=== PATIENT | female | born 1975 | race Caucasian/White ===

== ENCOUNTER 2019-04-16 16:31 | Outpatient (REF) | payer OTHER, SELFPAY ==
[2019-04-17 15:00] LABS: TSH (W/Ref FT4) 5.29 uIU/mL (0.36-3.74)
[2019-04-17 15:18] LABS: FREE T4 1.02 ng/dL (0.76-1.46)
== END 2019-04-16 16:51 ==
LOC: NCHCN 16:31
PROVIDERS: PCP Nurse Practitioner Family; Visit Provider Family Medicine
DX: Z13.29 Encounter for screening for other suspected endocrine disorder (principal)
CPT/HCPCS: 84439; 84443

== ENCOUNTER 2020-06-11 01:08 | Outpatient (CLI) | payer OTHER, SELFPAY ==
[2020-06-11] MEDS: Omnipaque 350 MG/ML 50 ML BTL PO (07:07)
[2020-06-11] MEDS: Breeza Beverage 473 ML BTL PO ×2 (07:08→07:09)
[2020-06-11 08:36] LABS: Abs Immature Grans 0.03 10^3/uL (0.0-0.06); Absolute Basophil Count 0.05 10^3/uL (0.0-0.2); Absolute Eosinophil Count 0.19 10^3/uL (0.0-0.7); Absolute Lymphocyte Count 1.45 10^3/uL (1.2-3.4); Absolute Monocyte Count 0.45 10^3/uL (0.1-0.8); Absolute Neutrophil Count 3.59 10^3/uL (1.2-6.7); Basophils % 0.9; Eosinophils % 3.3; HCT 42.2 % (36.0-46.0); Immature Grans % 0.5; Lymphocytes % 25.2; MCH 31.5 pg (27.0-33.0); MCHC 33.2 % (32.0-36.0); Monocytes % 7.8; Neutrophils % 62.3; Nucleated RBC 0 %; RBC 4.44 10^6/uL (3.93-5.22); RDW 11.4 % (11.7-14.6); RDW-SD 39.8 fL; WBC 5.76 10^3/uL (4.4-10.8)
[2020-06-11 08:43] LABS: ALT 32 U/L (14-59); AST 18 U/L (15-37); Alkaline Phosphatase 65 U/L (46-116); Anion Gap 5.5 mmol/L (3-11); BUN 12 mg/dL (7-18); Bilirubin, Total 0.4 mg/dL (0.2-1.0); CO2 27.5 mmol/L (21.0-32.0); Calcium 8.8 mg/dL (8.5-10.1); Chloride 104 mmol/L (98-107); Glucose 108 mg/dL (74-106); Potassium 4.7 mmol/L (3.5-5.1); Sodium 137 mmol/L (136-145); TSH (W/Ref FT4) 3.37 uIU/mL (0.36-3.74); Total Protein 7.4 g/dL (6.4-8.2)
[2020-06-11 08:49] LABS: C-Reactive Protein < 0.05 mg/dL (0.0-0.3)
[2020-06-11] MEDS: Normal Saline - Diluent 50 ML VIAL IV (08:51)
[2020-06-11] MEDS: Omnipaque 350 MG/ML 100 ML BTL IJ (08:51)
--- NOTE | 2020-06-11 08:52 | DI.CT_ITS ---
EXAM: CT ABDOMEN PELVIS W INDICATION: pain to the right of umbilicus and assoc diarrhea,ABD PAIN. COMPARISON: No exams were available for comparison TECHNIQUE: FINDINGS: CT examination of the abdomen and pelvis was performed with a bolus infusion of 100 cc of Omnipaque 3 50. Images obtained through the lung bases are unremarkable. The liver is unremarkable in appearance. Gallbladder and bile ducts are CT normal. Pancreas appears normal. Spleen is unremarkable in appearance. Adrenals appear normal. The kidneys are unremarkable with no evidence of hydronephrosis, nephrolithiasis, or renal mass.. Ur inary bladder unremarkable. Abdominal aorta is of normal diameter and no major vascular abnormality is seen. No abdominal wall hernia. No abdominal or pelvic adenopathy. LANDSCAPE ARCHITECT AND PLANNER structures appear intact. Appendix is normal. No evidence of diverticulitis or bowel obstruction. IMPRESSION: Negative CT examination of the abdomen and pelvis. RADIATION DOSE DELIVERED: 1,026.67mGy.cm Total DLP 1,026.67mGy.cm Total DLP
[2020-06-11 09:10] LABS: Diff Comment PLT Morph Reviewed
[2020-06-12 15:00] LABS: ANA Interpretation Positive (Negative); ANA Titer Pattern 1:160 Speckled
== END 2020-06-11 01:28 ==
PROVIDERS: PCP Nurse Practitioner; Visit Provider Surgery
DX: R10.9 Unspecified abdominal pain (principal); R19.7 Diarrhea, unspecified; Z83.79 Family history of other diseases of the digestive system
CPT/HCPCS: 36415; 80053; 74177; 84443; 85025; 86038; 86140; 86255; J3490; Q9967

== ENCOUNTER 2020-06-17 03:17 | Outpatient (CLI) | payer OTHER, SELFPAY ==
[2020-06-20 11:34] LABS: c-ANCA Negative (Negative); p-ANCA Negative (Negative)
== END 2020-06-17 03:37 ==
PROVIDERS: PCP Nurse Practitioner; Visit Provider Surgery
DX: R10.9 Unspecified abdominal pain (principal); R19.7 Diarrhea, unspecified; Z83.79 Family history of other diseases of the digestive system
CPT/HCPCS: 86255

== ENCOUNTER 2020-07-18 02:12 | Outpatient (CLI) | payer OTHER, SELFPAY ==
--- NOTE | 2020-07-18 06:15 | DI.US_ITS ---
EXAM: US PELVIS TRANSVAGINAL CLINICAL HISTORY: rt sided abd pain,f/u abnl ct,diarrhea,r10.31. TECHNIQUE: Transabdominal and transvaginal pelvic ultrasound was performed using standard protocol. COMPARISON: CT CT ABDOMEN PELVIS W from 06/11/2020 FINDINGS: KIDNEYS: Kidneys are symmetric in size. There were a few echogenic foci seen in the left kidney. The se may represent nonobstructing stones. No evidence of hydronephrosis. No renal mass or cyst identif ied. UTERUS: Position: Anteverted. Size: 9.1 long by 5.3 P by 5.7 transverse cm Endometrium: 1.0 cm. Normal for patient's menstrual status. The endometrium has a homogeneous echogen icity. Myometrium: Unremarkable. Cervix: Cervical nabothian cysts. OVARIES: Right: 2.1 x 1.2 x 1.0 cm Cyst or mass: Small functional cysts are present. Left: 2.9 x 1.7 x 1.5 cm Cyst or mass: Small functional cysts are present. There is a dominant 1.2 x 1.2 x 1.5 cm functional cyst. DOPPLER: Color: Symmetric and uniform flow to both ovaries. No hyperemia. Duplex: Normal ovarian arterial waveforms visualized. CUL-DE-SAC: Free fluid: There is a small amount of fluid in the cul-de-sac. Other: None. IMPRESSION: 1. Normal sonographic appearance of the kidneys. 2. Normal-appearing uterus with endometrial stripe within normal limits. 3. Unremarkable bilateral ovaries. 4. Small amount of free fluid in the cul-de-sac. This is likely physiologic. DATA REPOSITORY:
== END 2020-07-18 02:13 | disposition home or self-care (01) ==
LOC: DI 02:12
PROVIDERS: PCP Nurse Practitioner; Visit Provider Surgery
DX: R10.31 Right lower quadrant pain (principal); R19.7 Diarrhea, unspecified
CPT/HCPCS: 76830; 76856

== ENCOUNTER 2020-07-25 02:25 | Outpatient (CLI) | payer OTHER, SELFPAY ==
[2020-07-26 17:06] LABS: COVID-19 RT-PCR UVMMC Result Negative (Negative)
== END 2020-07-25 02:26 | disposition home or self-care (01) ==
LOC: LBO 02:25
PROVIDERS: PCP Nurse Practitioner; Visit Provider Surgery
DX: Z20.828 Contact with and (suspected) exposure to other viral communicable diseases (principal); Z01.818 Encounter for other preprocedural examination
CPT/HCPCS: U0003

== ENCOUNTER 2020-07-29 08:25 | Day surgery (SDC) | payer OTHER, SELFPAY ==
[2020-07-29 08:48] VITALS: BP 137/51; PULSE 86; RESP 16; TEMP 36.1; O2SAT 94
[2020-07-29] MEDS: Lactated Ringers 1,000 ML 80 ML IV (09:15)
--- NOTE | 2020-07-29 12:20 | BOWEL_PTH ---
PATIENT: Jaquan Owens LOC: [facility] U#:[id number] AGE/SX: 45/F ROOM: RE07/29/[address]: Jesica Moran : 1975 BED: DIS: 07/29/2020 SPEC #: [id number]: RECD: 07/29/20 15:20 STATUS: JANET RE #: [id number] JAMILA: 07/29/20 12:[address]: Jesica Moran DEPT: Surgical Specimen RECD BY: Jacqueline Mcdonald ENTERED: 07/29/20 15:23 SP TYPE: Bowel OTHR DR: Shaneka Londono Tissues: 1 - BIOPSY BOWEL 2 - BIOPSY BOWEL 3 - BIOPSY BOWEL 4 - BIOPSY BOWEL 5 - BIOPSY BOWEL 6 - BIOPSY BOWEL Procedures: GROSS AND MICRO LEVEL 4 Comments: [id number]
--- NOTE | 2020-07-29 12:42 | W.PM.DSUDISC ---
Discharge Plan Disposition Patient Disposition: HOME Condition: Good Discharge Details Reason For Visit: colon scope Attending Provider: Jesica Moran Primary Care Provider: Shaneka Londono Home Meds and New Rx's Prescriptions: Continued cyclobenzaprine 5 mg tablet 5 mg PO HS PRN (Reason: muscle spasm) Qty: 30 RF: 0 riboflavin (vitamin B2) 100 mg tablet 200 mg PO BID RF: 0 cholecalciferol (vitamin D3) 1,000 UNIT tablet 1,000 unit PO DAILY RF: 0 [place]-3S/Dha/Epa/Fish Oil [Fish Oil 1,000 mg Softgel] 1 EACH capsule 1 ea PO DAILY RF: 0 Zyrtec 10 mg capsule 10 mg PO DAILY RF: 0 levothyroxine 25 mcg capsule 25 mcg PO DAILY RF: 0 citalopram [Celexa] 10 mg tablet 10 mg PO DAILY RF: 0 fluticasone propionate [Flonase Allergy Relief] 50 mcg/actuation spray,suspension 1 spray intranasal DAILY RF: 0 vitamin B complex [B Complex-Vitamin B12] Tablet 1 tab PO DAILY RF: 0 Discontinued polyethylene glycol 3350 17 gram/dose powder 238 g PO ONCE Qty: 238 RF: 0 bisacodyl [Dulcolax (bisacodyl)] 5 mg tablet,delayed release (DR/EC) 5 mg PO ONCE Qty: 4 RF: 0 Discharge Instructions Instructions: Anal Fissure (DC) Additional Instructions: Findings:unremarkable Bx done no ASA/NSAID's or fish oil for 72hrs Follow up: Dr. Moran in 2 wks time Please call if you develop: fevers >101.5 Nausea or Vomiting Abdominal pain that is not transient DAY SURGERY UNIT POST COLONOSCOPY INSTRUCTIONS 1. Because there will be medication in your system for the next 24 hours, you may feel a little sleepy. Your coordination will be affected. Therefore: a. Do not drive or operate dangerous equipment for 24 hours. b. Do not drink alcohol beverages for 24 hours (not even beer). c. Plan to go home and rest for the day. 2. Generally there are no restrictions on your activity after a day or so has gone by, but you may feel a bit fatigued for a few days. 3 After you arrive home you may have a light meal and return to a normal diet as you can tolerate it without feeling sick to your stomach. 4. After surgery, you may feel pain or discomfort. This should be only transient, but if it persists please contact your doctor. 5. If there are any questions regarding the findings of your procedure, please feel free to contact your doctor. 6. If you are unable to contact your doctor with a problem, contact the hospital at [phone]. 7. Continue all your regular medications unless directed otherwise. I understand the above instructions and have no questions. Signature of Patient or Responsible Adult Escort Date/Time Name of Responsible Adult Escort Signature of Nurse Date/Time High Fiber Diet What is Dietary Fiber? All fiber comes from plants, bushes, gem or trees. Of course, the ones that we eat provide us with fruits, vegetables and grains. There are many different types of fiber but the three that are most important to the health of the body are: Insoluble Fiber This fiber does not dissolve in water, nor is it fermented by the bacteria residing in the colon. Rather, it retains water and in so doing, helps to promote a larger, bulkier and more regular bowel activity. This, in turn, may be important in preventing disorder such as diverticulosis and hemorrhoids, and in sweeping out certain toxins and cancer causing carcinogens. Sources of insoluble fiber are: ? whole grain wheat and other whole grains ? corn bran, including popcorn, unflavored and unsweetened ? nuts and seeds ? potatoes and the skins from most fruits from trees such as apples, bananas and avocados ? many green vegetables such as green beans, zucchini, celery and cauliflower ? some fruit plants such as tomatoes and kiwi Soluble Fiber These fibers are fermented or used by the colon bacteria as a food source or nourishment. When these good bacteria grow and thrive, many health benefits occur in both the colon and the body. Soluble fiber is present in some degree in most edible plant foods, but the ones with the most soluble fiber include: ? legumes such as peas and most beans, including soybeans ? oats, rye and barley ? many fruits such as berries, plums, apples bananas and pears ? certain vegetables such as broccoli and carrots ? most root vegetables ? psyllium husk supplement products Prebiotic Soluble Fiber These are relatively newly discovered soluble plant fibers. The technical name for this fiber is inulin or fructan. When these soluble fibers are fermented by the good colon bacteria, some further significant health benefits have been shown to occur by research in many medical centers. These soluble prebiotic fibers occur in significant amounts in: ? asparagus ? yams ? onions ? garlic ? bananas ? leeks ? agave ? chicory and other root vegetables such as [place] artichokes ? wheat, rye and barley (smaller amounts) Benefits of a High Fiber Diet The health benefits of a high fiber diet, consumed on a regular basis and reaching recommended amounts (below), are now fairly well-defined. There are some additional benefits in the early research stage with the prebiotic soluble fibers. What is now known regarding a high fiber diet include: Bowel Regularity A high fiber diet promotes regularity with a softer, bulkier and regular stool pattern. This decreases the chance of hemorrhoids, diverticulosis and perhaps colon cancer. Cholesterol and Reduced Triglycerides The soluble fibers are the ones that will reduce cholesterol levels when used on a regular basis. Psyllium husk and prebiotic soluble fiber will also reduce cholesterol. They may also reduce the incidence of coronary heart disease. Oats, flax seeds and legumes or beans are the recommended fibers. Colon Polyps and Cancer It is still not certain if a high fiber diet helps prevent colon cancer. Considerable research suggests that this may occur. Certainly it makes sense to increase regularity and so speed the movement of cancer causing carcinogens through the bowel. In addition, reducing a heavy meat diet reduces the bile flow from the liver in a favorable way. This, too, reduces the amount of carcinogens that reach and are manufactured in the colon. Finally, a high fiber diet, including prebiotic soluble fiber, increases the integrity and health of the wall of the colon. The risk of cancer may be reduced. Colon Wall Integrity A high fiber diet changes the bacterial makeup of the colon toward a more favorable balance. For instance, it is known that those people with obesity, diabetes type 2 and inflammatory bowel disease have a predominance of bad bacteria in the colon. This, in turn, may render the bowel wall weak and allow bacteria and, indeed, even toxins to seep through. A high fiber diet with a modest reduction in animal and meat products may return the bacterial makeup to a more positive balance. This, in particular, has been seen when the soluble fiber prebiotics are added to the diet. Blood Sugar Soluble fiber such as in legumes (beans), oats and in prebiotic fibers slows the absorption of blood sugar and so helps regulate the sugar in the blood. Insoluble fiber on a regular basis is associated with reduced risk of type 2 diabetes. Weight Loss High fiber diets are more filling and give a sense of fullness sooner than an animal and meat based diet does. In addition, the soluble prebiotic fibers have been shown to turn off the hunger hormones produced in the wall of the gut and to increase the hormones that give a sense of fullness. Those hormones are made in the wall of the gut. New medical research has shown that the bacterial makeup in the colon in overweight people is abnormal to the extent that they manufacture and absorb almost twice the number of calories through the colon wall as do normals. Prebiotic fibers (below) will help change this hormonal balancein a favorable way. Bacteria and the Function of the Colon The colon finishes the digestive process. Hopefully, the waste products move through in a nice regular manner. Insoluble fibers help this process by retaining water and so producing a bulkier, softer stool, which is easy to pass. The additional role of the colon is to provide a home for an enormous number of micro-organisms, mostly bacteria. Recent research has shown that there are over 1,000 species of bacteria with a total bacterial count ten times the number of cells in the body. These bacteria play a major role in keeping the colon wall itself healthy. In addition, these good bacteria produce a very strong immune system for the body. They significantly increase calcium absorption and bone density. They provide other documented benefits. It is the soluble fibers in the diet that are so effective in stimulating the growth of good colon bacteria. How Much is Enough? The amount of fiber in food is measured in grams. National nutritional authorities recommend the following amounts of dietary fiber daily. Under Age 50 Over Age 50 Men 38 grams 30 grams Women 25 grams 21 grams For a week or so, it is best to tally the amount of fiber you are consuming. Boxed and packaged foods will have the amount of fiber per serving on the nutrition label. Which Fibers and Which Foods are Best? As noted, healthy fiber is only found in plants. The three major categories are whole grains, fruits and vegetables. Whole Grains Wheat, oats, barley, wild or brown rice, amaranth, buckwheat, bulgur, corn, millet, quinoa, rye, sorghum, teff and triticals. By far, wheat, oats and wild or brown rice are most common. Always buy whole grain products. White bread, baked goods and rolls almost always are made from wheat flour. Wheat flour is white because most of the fiber, vitamins and other nutrients have been removed. Try not buy enriched grains. What this means is that simple white flour has had vitamins added to it by the purchasing internship. The word, enriched, implies a good and healthy product. On the contrary, enriched means that most of the fiber has been removed and a few vitamins added. Fruits Fruits come from trees such as apple and pear or from bushes or gem. You should eat a wide variety of fruits, preferably with every meal. In many cases, the skin of a fruit such as apple will contain much of the insoluble fiber while the pulp contains most of the soluble fiber. To the extent possible, buy organic fruits as these will have little or no pesticides. Always wash fruit. Vegetables Eat a wide variety of vegetables. They should be a mainstay of lunch and dinners. Frozen vegetables retain as much nutrition and fiber as fresh vegetables. As with fruit, try to buy organic to reduce any residual pesticide ingestion. Wash fresh vegetables thoroughly. Cruciferous vegetables such as broccoli, [place] sprouts and cauliflower contain certain chemicals such as sulforaphane. This substance has very strong anti-cancer properties and should be eaten frequently. Legumes, Beans, Peas and Soybeans These vegetables have plenty of soluble fiber and should be part of a varied vegetable intake. Beans, in particular, contain a certain type of fiber that may lead to harmless gas or bloating. Nuts and Seeds These are rich sources of fiber and are a good substitute for sweets such as candies and baked sweet goods. While nuts and seeds are rich in fiber, they also contain vegetable fat and so can and do add calories. Read the Labels As noted, fresh and frozen foods are usually better. They have good nutrition and few, if any, chemicals added to them. When buying packaged foods and, in particular grains, look for three things: ? The first word on the label should be whole, such as whole wheat or whole grain. ? Check out the calories and the amount of fiber in a serving. ? How many and what other additives or chemicals are added. Fewer is always better. Do you know what each additive does? Some are added not for the benefit of the media buyer but rather for manufacturers. These could and do include sugar, artificial flavor, chemicals to prevent oxidation and spoilage, emulsifiers to blend the product. You have to be a lymphedema therapist. Fiber Facts, Nuggets and Pearls ? For breakfast you can easily get the day started well by using a high fiber, whole grain cereal. Check the labels. Add fruit such as blueberries and bananas. If you are an egg eater, use whole wheat or grain toast. Adding wheat germ gives you a good fiber kick. ? Always use whole grain or wheat with rolls and sandwiches. Does your fast food store not have them? Perhaps you look elsewhere. Eating an occasional black wahl or veggie burger provides variety. ? Snacks should consist of fruit and/or nuts. While nuts are loaded with fiber, they are an energy rich food, meaning they have a lot of calories in a small packet. ? Fruit juices should contain pulp. Clear juices such as clear orange, pear or apple juice contain little fiber and have a lot of fructose. Prune juice is usually high in fiber. ? Homemade soups ? adding fresh or frozen vegetables to a chicken or vegetable stock is a good way to start homemade soup. ? Salads ? adding cooked and then chilled vegetables provide great flavoring to almost any salad. Remember, a currie salad has lots of cooked corn in it. Small slices of apples or oranges and nuts such as chopped walnuts or sliced almonds always adds taste, variety and fiber to almost any salad. ? Fruit ? Try to eat fruit of some type with almost every meal. ? Rethink how you place the various foods on your dinner plate. Reducing the portions of the meat or animal food portion to the side with equal or more portions of vegetables, legumes and fruits portion always allows for more fiber. There was never anything magic about making the meat or animal food portion the main part of the dinner plate. Eating from smaller plates can, over time, trick your mind and [facility] habit of using a dinner plate. Again, there is nothing magic in an 11, 12, or 13 inch dinner plate. Fiber Supplements There are a variety of fiber supplements available on the food or pharmacy shelves. Psyllium This soluble plant fiber has been used in [place] for over 2,000 years. It is a soluble fiber with mucilage in it. This acts to retain a lot of water and also is fermented by colon bacteria. When 7 grams a day are used, it does lower cholesterol. Metamucil in various forms is psyllium. Methyl Cellulose All the cellulose products come from finely ground wood chips which are then treated in a variety of ways such as boiling in acids. Methyl cellulose is an insoluble fiber which does dissolve in water. It is also an emulsifier, meaning it blends oils and water. Citrucel is methyl cellulose (MC). MC may not be appropriate for Crohn?s disease or ulcerative colitis as several medical studies have shown that certain emulsifiers dissolve the mucous lining of the colon in animals prone to Crohn?s disease. This then allows bacteria to invade the underlying tissue. Inulin Inulin is a soluble prebiotic fiber found in many foods and which are fermented mostly in the left side of the colon. It is available in a supplement as generic inulin and in Fiber Choice. Oligofructose FOS These are also prebiotic fibers. They are fermented very quickly in the right side of the colon. Prebiotin This product is a combination of oligofructose, which feeds the bacteria in the right side of the colon and inulin, which does the same in the left side of the colon. There seems to be a benefit for this particular formula based on medical research. Prebiotic Soluble Fiber These may be the healthiest of all the soluble fibers. They grow in many plants and have had a great deal of research done on them in the last 10-15 years. These fibers are found in asparagus, yams and other root vegetables such as chicory, garlic, onion, leeks and in smaller amounts in wheat. This research has shown the following: ? Increase in good and decrease in bad colon bacteria ? Increase calcium absorption and enhanced bone mass ? Enhanced immune system ? Appetite and weight control by changing the hormone appetite signals to the brain ? May decrease colon cancer incidence ? Reduce or correct a leaky colon Eating a wide variety of plant food up to the recommended amount will likely give you enough prebiotic fiber. Supplements such as Prebiotin can be added to the diet. Short Chain Fatty Acids (SCFA) Some rather remarkable research findings have shown that one of the benefits of ingesting a lot of soluble fiber, in particular the prebiotic ones, results in larger amounts of SCFAs in the colon. These SCFAs are made by the good bacteria in the colon such as Bifidobacter and Lactobacillus. These small molecules have been shown to do the following: ? Enhance the health and integrity of the colon wall ? Provide nourishment for the cells that actually line the colon ? Increases the acidity of the colon which is a very real health benefit ? Stabilize blood sugar for diabetics ? Reduce blood cholesterol and triglyceride ? Significantly enhance immunity ? May be a benefit for Crohn?s disease and ulcerative colitis patients Fiber and Gas Everyone has intestinal gas and that is a good thing. It means that bacteria, hopefully the good ones, are thriving. The normal amount of flatus passed each day depends on sex and what is eaten. The normal number of flatus is 10-20 times a day. When the bacteria that make intestinal gases are growing, it also means that other good bacteria are using the same fibers to grow and produce multiple health benefits, including the production of healthy short-chain fatty acids. These substances are produced quietly in the colon and produce many health-related outcomes. Soluble fiber should always be used in a gradual manner. If too much is consumed at any one time, then excess, but harmless, intestinal gas can occur. People with irritable bowel syndrome are particularly prone to bloating and mild cramping. In this instance, soluble fiber in the diet or supplement should be used in small doses and increased gradually. Finally, prebiotic fibers tend to cause the production of short-chain fatty acids which acidify the colon. This, in turn, reduces or stops the growth of bacteria that make the smelly hydrogen sulfide gases that produce noxious flatus. People who consume many vegetables with prebiotics or take a prebiotic fiber supplement often have non-odoriferous flatus. Fiber and Irritable Bowel Syndrome Irritable bowel syndrome (IBS) is one of the most common disorders of the lower digestive tract. The symptoms of IBS can be quite varied. They can be a mix of several symptoms such as constipation, diarrhea, crampy abdominal discomfort, bloating and gas. An attack of IBS can be triggered by emotional tension and anxiety, poor dietary habits and certain medications. It is now known that infections in the intestine can lead to long-term IBS symptoms. Increased amounts of fiber in the diet can help relieve the symptoms of irritable bowel syndrome by producing soft, bulky stools. This helps to normalize the time it takes for the stool to pass through the colon. Recent medical research with newer techniques has shown some surprising and dramatic findings for IBS patients. Specifically, there is a very significant and abnormal shift of bacteria from those that provide health benefits to those bad bacteria that we really do not want in the gut. The technical name for this bad group of bacteria is called Firmicutes. Along with this abnormal bacterial collection, there is a smoldering low-grade inflammation in the gut wall that may contribute to symptoms. The goal for IBS patients should be to gradually increase the soluble dietary fibers in the diet so as to promote the growth of good bacteria and so suppress the bad ones along with the associated inflammation. IBS patients need to be careful of the amount of soluble fiber they consume. The reason for this is that, while the good colon bacteria thrive on these fibers and produce health benefits, other gas-forming bacteria may generate excessive but harmless gas and subsequent bloating. Thus, soluble plant fibers or a dietary prebiotic supplement should be taken in small initial doses and then gradually increased to tolerance. Fiber and Colon Polyps/Cancer Colon cancer is a major health problem. This disease is most common in Western cultures. It is not seen very often in rural cultures where the diet is mostly plant based. Usually, colon cancer starts out as a colon polyp, a benign mushroom-shaped growth. In time it grows, and in some people it becomes cancerous. Colon cancer is usually always curable if polyps are removed when found or if surgery is performed at an early stage. It is now known that people can inherit the risk of developing colon cancer, but diet is important, too. As noted, there is a very low rate of colon cancer in residents of countries where grains are unprocessed and retain their fiber. It seems that in the [place] world, cancer-containing agents (carcinogens) remain in contact with the colon wall for a longer time and in higher concentrations. So, a large bulky stool may act to dilute these carcinogens by moving them through the bowel more quickly. Less carcinogenic exposure to the colon may mean fewer colon polyps and less cancer. A very current review of the entire world?s literature on the effect of fiber on colon polyps and cancer prevention has shown rather clearly that for every 10 grams of fiber added to the diet, there is a 10% reduction in incidence of colon cancer. So the recommended 30 gram fiber diet would result in a 30% less chance of getting these tumors. There are also substances produced in the colon by the good bacteria that seem to retard certain pre-cancer factors from developing. They are called short-chain fatty acids (SCFA). See above for description of SCFAs. A high fiber diet increases these substances. So, the combination of dietary fiber and the production of short-chain fatty acids have a clear health benefit. Fiber and Diverticulosis Prolonged, vigorous contraction of the colon over a long period of time may result in diverticulosis. This increased pressure causes small and, eventually, larger ballooning pockets to form. These pockets by themselves cause no problem. However, sometimes they become infected (diverticulitis) or even break open (perforate) causing infection or inflammation within the abdomen (peritonitis). A high fiber diet increases the bulk in the stool and thereby reduces the pressure within the colon. By so doing, the formation of pockets may be reduced or possibly even stopped. In the past, many physicians were fearful that seeds as in tomatoes, nuts or berries were harmful and could get inside these pockets and rattle around, causing damage. We now know that this has never been the case and that these foods contain lots of fiber and are actually beneficial for diverticulosis patients. Certain bulking agents such as psyllium are traditional types of bulk producing supplements. Psyllium is a soluble fiber. Combining it with insoluble fiber as in wheat bran or corn bran (no gluten) can enhance this bulking effect even more. A product containing a prebiotic, psyllium and wheat bran is probably a very good combination for bowel regularity. Prebiotin Regularity/Diverticulosis is one such product. Inflammatory Bowel Disease (IBD) IBD means Crohn?s Disease (CD) or Ulcerative Colitis (UC). CD is an inflammation of the lower small bowel and/or the colon. Bacteria actually invade and cause inflammation in the entire wall of the intestine. UC, on the other hand, is an inflammation just of the lining of the colon. It usually starts in the rectum and left colon and may spread to the entire colon from there. It is now known that in both CD and UC that the bacterial make up is abnormal. This means that there are significantly more of the bad bacteria present than the good ones. These abnormal bacteria are called Firmicutes. Fiber and Crohn?s Disease There is now some information in the medical literature on what type of diet may be harmful and what may help Crohn?s Disease. A reduction in red meat is likely helpful. So is reducing the fat in the diet, including vegetable oils. More importantly, people who had low fiber ingestion in the diet had a greater chance of getting CD. So, a gradual increase in the amount of fiber is likely helpful in hopefully preventing CD. This should always be done in conjunction with the physician. It should be done gradually and should include soluble fibers which fertilize the best colon bacteria. The good bacteria grow and push out the bad ones. These good bacteria provide short chain fatty acids, which can help heal the bowel wall. Prebiotics such as Prebiotin are available. Fiber and Ulcerative Colitis We still do not have strong evidence in the medical literature on what is the best diet for UC. Eating plenty of soluble fiber, including prebiotic fibers will nourish the best colon bacteria. It is hoped that this will result in a decrease in the bad or Firmicutes bacteria. It is well-known that when the good bacteria proliferate that they produce lots of acid substances called short chain fatty acids (SCFA). The SCFAs actually nourish the cells of the colon wall, the very ones that become inflamed in UC. In addition, when the colon contents become acid, the smelly sulfide gases are not produced and the flatus becomes less noxious and may even have no smell at all. This may have a beneficial effect on the inflammation. Prebiotics such as Prebiotin are the best type of soluble fiber. Activity:: no lifting over 20 #'s x 24 hrs Diet:: small light meals x 24hrs Discharge Orders Discharge Orders: Discharge Order (Routine); Ordered 07/29/20 Ordered By: Jesica Moran DS: Diagnosis Discharge Diagnosis (1) BREA positive: Status: Acute (2) RLQ abdominal pain: Status: Acute (3) Family history of Crohn's disease: Status: Acute (4) Diarrhea: Status: Acute (5) Abdominal pain: Status: Acute
[2020-07-29 13:09] VITALS: BP 133/64; PULSE 65; RESP 18; TEMP 36.2; O2SAT 98
--- NOTE | 2020-08-04 17:09 | COLE_ITS ---
Date of service: 07/29/20 Colonoscopy Report Date of procedure: 07/29/20 Pre-op diagnosis general: rlq pain and diarrhea Post-op diagnosis procedure note: same Surgeon: Jesica Moran Anesthesia proc note operative: GETA Estimated blood loss (mL): 0 Pathology: other Complications: None Disposition: same day Prep: Miralax/Dulcolax Retraction Time: 12 mins Procedure Description: After informed consent was obtained the patient was taken to the procedure room and placed in a left decubitous position. Monitors were applied and a time out was done. The patients name, date of , procedure, allergies to medications and metal in their body was reviewed. The patient was then sedated. Once sedated and comfortable a rectal exam was done. External exam was normal. Internal exam revealed a normal sphincter tone and no palpable masses. She does have a small anal fissure at 6 o'clock position. There is no bleeding or infection. The scope was then introduced and retrofelexed. No internal hemorrhoids were identified. The scope was then advanced to the cecum without difficulty. The TI and appendiceal orifice were identified. I was able to get the scope into the terminal ileum. Biopsies were done of the terminal ileum, cecum, 80 cm of the ascending colon, transverse colon at 70-60 cm centimeters, sigmoid at 40 cm, and in the rectum. Mucosa all appears pink, healthy, and very normal. The colon flowed and did not show any extrinsic compression pression or signs of any external tethering the prep was good. The scope was then slowly retracted over 10 minutes back into the rectum. No polyps/AVM's or diverticula. The scope w as removed and the patient was woken up and taken back to Same day surgery in stable condition. The patient tolerated the procedure well and there were no immediate complications. Follow up: The patient should follow up in 10 years unless they develop changes in bowel habits or other new gastrointestinal complaints.
== END 2020-07-29 13:35 | disposition home or self-care (01) ==
PROVIDERS: PCP Nurse Practitioner; Visit Provider Surgery
PROC: 0DJD8ZZ Inspection of Lower Intestinal Tract, Via Natural or Artificial Opening Endoscopic (ICD-10-PCS; CPT 45378; principal; 2020-07-29 09:00)
DX: R19.7 Diarrhea, unspecified (principal); R10.31 Right lower quadrant pain; Z83.79 Family history of other diseases of the digestive system
CPT/HCPCS: 45380; 81025; 88305

== ENCOUNTER 2020-08-04 09:00 | Outpatient (REF) | payer OTHER, SELFPAY ==
--- NOTE | 2020-08-04 08:15 | PAPFT_PTH ---
PATIENT: Jaquan Owens LOC: [facility]#:[id number] AGE/SX: 45/F ROOM: RE08/04/[address]: Shaneka Londono : 1975 BED: DIS: 08/04/2020 SPEC #: [id number] RECD: 08/04/20 18:20 STATUS: JANET MADDOX #: [id number] JAMILA: 08/04/20 08:[address]: Shaneka Londono DEPT: [facility] Cytology RECD BY: Jacqueline Mcdonald Tissues: 1 - CX/ENDOCX FOR PAP SMEARS Procedures: PAP THIN PREP/UVM Screening HPV DNA PROBE Comments: [id number]
== END 2020-08-04 09:01 | disposition home or self-care (01) ==
LOC: NCHCN 09:00
PROVIDERS: PCP Nurse Practitioner; Visit Provider Nurse Practitioner
DX: Z12.4 Encounter for screening for malignant neoplasm of cervix (principal); Z11.51 Encounter for screening for human papillomavirus (HPV); R87.810 Cervical high risk human papillomavirus (HPV) DNA test positive; Z00.00 Encounter for general adult medical examination without abnormal findings
CPT/HCPCS: 88142; 87624

== ENCOUNTER 2022-04-01 12:40 | Outpatient (REF) | payer OTHER, SELFPAY ==
--- NOTE | 2022-04-01 09:45 | PAPFT_PTH ---
PATIENT: Jaquan Owens LOC: [facility]#:[id number] AGE/SX: 47/F ROOM: RE04/01/[address]: Ting Kaplan : 1975 BED: DIS: 04/01/2022 SPEC #: [id number] RECD: 04/01/22 18:09 STATUS: JANET REQ #: [id number] JAMILA: 04/01/22 09:[address]: Ting Kaplan DEPT: [facility] Cytology RECD BY: Jacqueline Mcdonald ENTERED: 04/01/22 18:09 SP TYPE: PAPFT OTHR DR: Shaneka Londono Tissues: 1 - CX/ENDOCX FOR PAP SMEARS Procedures: PAP THIN PREP/UVM Screening HPV DNA PROBE Comments: [id number] (HPV 16 & 18/45)
== END 2022-04-01 12:41 | disposition home or self-care (01) ==
LOC: NCHCN 12:40
PROVIDERS: PCP Nurse Practitioner; Visit Provider Nurse Practitioner Family
DX: Z12.4 Encounter for screening for malignant neoplasm of cervix (principal)
CPT/HCPCS: 88142; 87624

== ENCOUNTER 2022-04-22 16:08 | Outpatient (REF) | payer OTHER, SELFPAY ==
[2022-04-22 16:49] LABS: Anion Gap 8.7 mmol/L (3-11); BUN 15 mg/dL (7-18); CO2 27.3 mmol/L (21.0-32.0); CREATININE 0.8 mg/dL (0.55-1.02); Calcium 9.3 mg/dL (8.5-10.1); Calculated LDL 174 mg/dL (<100); Chloride 102 mmol/L (98-107); Cholesterol 268 mg/dL (<200); Estimated GFR 90.27 (mL/min/1.73m2); Glucose 92 mg/dL (74-106); HDL Cholesterol 73 mg/dL (40-60); Potassium 4.1 mmol/L (3.5-5.1); Sodium 138 mmol/L (136-145); TSH (W/Ref FT4) 2.38 uIU/mL (0.36-3.74); Triglyceride 107 mg/dL (<150)
== END 2022-04-22 16:09 | disposition home or self-care (01) ==
LOC: NCHCN 16:08
PROVIDERS: PCP Nurse Practitioner; Visit Provider Nurse Practitioner Family
DX: E78.5 Hyperlipidemia, unspecified (principal); Z00.00 Encounter for general adult medical examination without abnormal findings
CPT/HCPCS: 80048; 80061; 84443

== ENCOUNTER 2022-04-28 17:30 | Outpatient (REF) | payer OTHER, SELFPAY ==
--- NOTE | 2022-04-28 15:10 | ENDO_PTH ---
PATIENT: Jaquan Owens LOC: [facility] U#:[id number] AGE/SX: 47/F ROOM: RE04/28/[address]: Monse Wray DO : 1975 BED: DIS: 04/28/2022 SPEC #: [id number] RECD: 04/28/22 18:26 STATUS: JANET REQ #: [id number] JAMILA: 04/28/22 15:[address]: Monse Wray DEPT: Surgical Specimen RECD BY: Jacqueline Mcdonald ENTERED: 04/28/22 18:27 SP TYPE: Endo OTHR DR: Shaneka Londono Tissues: 1 - ENDOCERVICAL BX/CURRETTE 2 - CERVICAL BIOPSY Procedures: GROSS AND MICRO LEVEL 4 IMMUNOPEROXIDASE STAIN P16 IPEX Comments: [id number]
== END 2022-04-28 17:31 | disposition home or self-care (01) ==
LOC: LBN 17:30
PROVIDERS: PCP Nurse Practitioner; Visit Provider Obstetrics & Gynecology
DX: N87.1 Moderate cervical dysplasia (principal); R87.612 Low grade squamous intraepithelial lesion on cytologic smear of cervix (LGSIL)
CPT/HCPCS: 88305; 88342; 88361

== ENCOUNTER 2022-06-01 02:07 | Outpatient (CLI) | payer OTHER, SELFPAY ==
[2022-06-01 07:54] LABS: Abs Immature Grans 0.02 10^3/uL (0.0-0.06); Absolute Basophil Count 0.04 10^3/uL (0.0-0.2); Absolute Lymphocyte Count 1.38 10^3/uL (1.2-3.4); Absolute Monocyte Count 0.47 10^3/uL (0.1-0.8); Absolute Neutrophil Count 3.37 10^3/uL (1.2-6.7); Basophils % 0.7; Eosinophils % 1.9; HCT 42.7 % (36.0-46.0); Immature Grans % 0.4; Lymphocytes % 25.7; MCH 31.4 pg (27.0-33.0); MCHC 32.8 % (32.0-36.0); MCV 96 fL (80-95); MPV 9.8 fL (8.0-11.0); Monocytes % 8.7; Neutrophils % 62.6; Platelet Count 275 10^3/uL (130-400); RBC 4.46 10^6/uL (3.93-5.22); RDW 11.8 % (11.7-14.6); RDW-SD 41.1 fL; WBC 5.38 10^3/uL (4.4-10.8)
== END 2022-06-01 02:08 | disposition home or self-care (01) ==
LOC: LBO 02:07
PROVIDERS: PCP Nurse Practitioner Family; Visit Provider Obstetrics & Gynecology
DX: Z01.818 Encounter for other preprocedural examination (principal)
CPT/HCPCS: 36415; 86850; 86900; 86901; 85025

== ENCOUNTER 2022-06-02 08:19 | Day surgery (SDC) | payer OTHER, SELFPAY ==
[2022-06-02 09:03] VITALS: BP 102/62; PULSE 60; RESP 16; TEMP 36.1; O2SAT 100
[2022-06-02] MEDS: Lactated Ringers 1,000 ML 125 ML IV (09:15)
--- NOTE | 2022-06-02 09:26 | W.ANESPRE ---
General Info Date of Service Date Performed: 06/02/22 Height: 7 ft 2.2 in Weight: 86.183 kg Body Mass Index (BMI): 17.9 Surgical Procedure: Operation Date: 06/02/22 10:10 Proposed Procedure Side Surgeon p Leep Cone Biopsy Monse Wray DO [place] Allergies and Home Medications Allergies Allergy/AdvReac Type Severity Reaction Status Date / Time No Known Allergies Allergy Verified 06/02/22 09:00 Home Medication Medication Instructions Recorded [place]-3S/Dha/Epa/Fish Oil [Fish 1 ea PO DAILY 01/25/18 Oil 1,000 mg Softgel] cholecalciferol (vitamin D3) 25 1,000 unit PO DAILY 01/25/18 mcg (1,000 unit) tablet vitamin B complex (B 1 tab PO DAILY 06/03/20 Complex-Vitamin B12 tablet) cetirizine 10 mg capsule (Zyrtec) 10 mg PO DAILY PRN 04/29/22 citalopram 10 mg tablet (Celexa) 20 mg PO DAILY 04/29/22 levothyroxine 25 mcg capsule 75 mcg PO DAILY 04/29/22 Current Visit Medications: Current Medications Generic Name Dose Route Start Last Admin Trade Name Freq PRN Reason Stop Dose Admin Ringer's Solution 1,000 mls @ 125 mls/hr 06/02/22 06:00 06/02/22 09:15 IV 07/01/22 23:59 125 mls/hr INFUSION CLAIR Administration IV Miscellaneous Supplies 1 each 06/02/22 06:00 Iv Access IV 07/01/22 23:59 DIRECTED CLAIR Sodium Chloride 0 ml 06/02/22 06:00 Normal Saline Flush 10 Ml Syr IV 07/01/22 23:59 PRN PRN Sodium Chloride 0 ml 06/02/22 06:00 Normal Saline 10 Ml Vial IJ 07/01/22 23:59 DIRECTED PRN Sterile Water 0 ml 06/02/22 06:00 Water,Injection,Sterile 10 Ml Vial IJ 07/01/22 23:59 DIRECTED PRN PFSH Active Problems Active Problems: Problem Status Onset Code MINA II (cervical intraepithelial neoplasia II) N87.1 Low grade squamous intraepithelial lesion (LGSIL) at risk for high grade squamous intraepithelial lesion (HGSIL) on cytologic smear of cervix R87.612 Otalgia, right ear H92.01 Facial pain R51.9 PMS (premenstrual syndrome) N94.3 Periocular dermatitis L30.9 Overweight E66.3 Depression with anxiety F41.8 Family history of breast cancer Z80.3 Chronic rhinosinusitis J31.0, J32.9 Anal fissure K60.2 BREA positive R76.8 RLQ abdominal pain R10.31 Family history of Crohn's disease Z83.79 Diarrhea R19.7 Abdominal pain R10.9 Tension headache G44.209 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 Migraine headache with aura G43.109 Migraine aura without headache G43.109 H/O atypical migraine Z86.69 Hyperlipidemia E78.5 Anxiety and depression F41.9, F32.9 Medical History Medical History Abdominal cramps Abdominal discomfort Acute sinusitis Family history of breast cancer in first degree relative Hyperlipidemia Hypothyroidism Psoriasis Screening for breast cancer Surgical History Surgical History History of colonoscopy with polypectomy (~07/29/20) Submandibular gland mass Tobacco Smoking/Tobacco Use Status: Never Alcohol Alcohol Intake: current Alcohol intake frequency: a few times a month Alcohol type: hard liquor Substance Use Substance use: Never Substance use type: does not use Details: alcohol: t-21, one drink Prental History History 3 Para 2 Hx # Term Pregnancies 1 Multiple births Hx # Pregnancies 1 Ectopic pregnancies AB induced Hx Number of Living Children 2 AB spontaneous Vital Signs and Lab Results Vital Signs Most Recent Vital Signs in EMR: Most Recent Vital Signs Temp Pulse Resp BP Pulse Ox 36.1 C L 60 16 102/62 100 06/02/22 09:03 06/02/22 09:03 06/02/22 09:03 06/02/22 09:03 06/02/22 09:03 Point of Care Results Point of Care Results: POC- Test(urine) Negative 06/02/22 08:55 Lab Results Blood Type / Crossmatch: Patient ABO/Rh A Positive 06/01/22 Antibody Screen NEGATIVE 06/01/22 Complete Blood Count: White Blood Count 5.38 10^3/uL (4.4-10.8) 06/01/22 07:42 Red Blood Count 4.46 10^6/uL (3.93-5.22) 06/01/22 07:42 Hemoglobin 14.0 g/dL (11.2-15.7) 06/01/22 07:42 Hematocrit 42.7 % (36.0-46.0) 06/01/22 07:42 Platelet Count 275 10^3/uL (130-400) 06/01/22 07:42 Complete Metabolic Panel: No Data to Display Liver Function Panel: No Data to Display Coagulation Panel: No Data to Display Cardiac Panel: No Data to Display Arterial Blood Gas: No Data to Display Venous Blood Gas: No Data to Display Pancreas Panel: No Data to Display Thyroid Panel: No Data to Display Infectious Disease: No Data to Display Blood Cultures: No Data to Display Toxicology Panel: No Data to Display Panel: No Data to Display Anesthesia Assessment and Plan Anesthesia History Personal History: No History of Anesthesia Complications Family History: No Family History of Anesthesia Complications Exercise Tolerance Exercise Tolerance: Metabolic Equivalents>4 Pertinent Negatives Pertinent Negatives: No Symptoms of GERD, No Major Cardiovascular Symptoms or Complaints, No Major Pulmonary Symptoms or Complaints and No History of CVA/TIA Cardiac & Pulmonary Exam Cardiac Exam: Normal S1/S2 Heart Sounds Pulmonary Exam: Clear Bilateral Breath Sounds Implantable Cardiac Device Does patient have a Pacemaker or an ICD?: No Airway Exam Known Difficult Airway: No Mallampati Class: 1 Mouth Opening: Normal (> 3cm) Thyromental Distance: Greater than 3 cm Neck Range of Motion: Full ROM Neck Circumference: Normal Teeth Condition: Normal Dentition ASA Classification ASA Score: ASA 2 Emergency Case?: No NPO Status NPO Status: NPO Clears >2 hours, Solids >8 hours Status Status: Negative HCG Anesthesia Plan Resuscitation Status: Full Code Anesthesia Technique: General Anesthesia Airway Planned: Natural Airway Monitors Used: Standard Monitors
[2022-06-02 09:27] VITALS: BMI 17.9
--- NOTE | 2022-06-02 11:07 | CER_PTH ---
PATIENT: Jaquan Owens LOC: [facility] U#:[id number] AGE/SX: 47/F ROOM: RE06/02/[address]: Monse Wray DO : 1975 BED: DIS: 06/02/2022 SPEC #: [id number] RECD: 06/02/22 12:53 STATUS: JANET REQ #: [id number] JAMILA: 06/02/22 11:[address]: Monse Wray DEPT: Surgical Specimen RECD BY: Jacqueline Mcdonald ENTERED: 06/02/22 12:54 SP TYPE: CER ASAF DR: Ting Kaplan Tissues: 1 - CERVICAL CONE BX 2 - CERVICAL BIOPSY Procedures: GROSS AND MICRO LEVEL 5 P16 IPEX Comments: [id number]
[2022-06-02 11:21] VITALS: BP 133/85; PULSE 81; RESP 16; TEMP 36.5; O2SAT 98
--- NOTE | 2022-06-02 11:23 | W.PM.OP ---
Date of service: 06/02/22 Time of Service: 11:23 Operative Note Operative Note DATE OF PROCEDURE: 06/02/22 PRE-OP DIAGNOSIS: MINA-2 POST-OP DIAGNOSIS: same PROCEDURE: Loop electrocautery excisional procedure SURGEON: Monse Wray ANESTHESIA TYPE: General:No Airway Refer to Anesthesia Record ESTIMATED BLOOD LOSS: 10 PATHOLOGY: other (1. Cervical conization 2. Cervical Top-Hat) COMPLICATIONS: None Patient was transported to: same day Patient's condition: stable Indications: MINA-2 Findings: Good visualization of the transformation zone. Abnormal vessel at the 12 o'clock position. Procedure Description: After full informed consent was obtained, patient was taken the operating suite with an IV running. She was placed in the supine position in yellowfin stirrups and prepped and draped in the usual sterile fashion. Exam under anesthesia revealed a uterus that was midline and mobile. Bladder had been previously emptied and pneumatic compression stockings placed for DVT prophylaxis as per routine. Graves speculum was inserted into the vaginal vault and cervix was identified. Transformation zone was fully visualized. There was noted to be a mild amount of abnormal vasculature at the 12 o'clock position. With Bovie cautery set at 6060, blood 1 a cervical conization was performed with a loop electrocautery device. There was an area at the endocervical canal which appeared somewhat firm to the touch endocervical Top-Hat was performed in this location. Specimens were sent separately. Top-Hat would be the proximal portion of the endocervical canal. Upon completion of the conization, the base was cauterized and hemostatic. Monsel's solution was placed at the base of the cervical conization. At this point, speculum was removed and the patient was returned to the dorsal supine position. She awoke from anesthesia with ease. Complications: None apparent Pathology: 1. Cervical conization 2. Cervical Top-Hat EBL: 10 mL Fluids: Crystalloid per anesthesia
--- NOTE | 2022-06-02 11:28 | W.ANESPOSTOP ---
Postoperative Evaluation Date, Time and Location Date Performed: 06/02/22 Time Performed: 11:29 Patient Location: Day Surgery Unit Vital Signs Most Recent Imported Vital Signs: Most Recent Vital Signs Temp Pulse Resp BP Pulse Ox 36.1 C L 60 16 102/62 100 06/02/22 09:03 06/02/22 09:03 06/02/22 09:03 06/02/22 09:03 06/02/22 09:03 Most Recent Manually Entered Vital Signs: Adult Blood Pressure: 133/85 Heart Rate: 78 Respirations: 16 Oxygen Saturation (%): 97 Temperature (C): 36.4 C Pain Score (0-10 Scale): 0 Pain Score Most Recent Pain Score: Most Recent Pain Score Pain Level 0 06/02/22 09:03 Assessment Mental Status: Awake (Alert & Oriented to Patient Baseline) Airway and Respiratory Function: Patent airway with normal (patient baseline) respiratory exam Cardiovascular Function: Hemodynamically Stable Hydration Status: Adequately Hydrated Nausea & Vomiting: No Nausea or Vomiting Pain: Pt. Denies Any Pain Peripheral Nerve Block: Patient did not receive a nerve block
[2022-06-02 11:29] VITALS: BP 133/85; PULSE 78; RESP 16; TEMPC 36.4; O2SAT 97
[2022-06-02 11:52] VITALS: BP 116/81; PULSE 68; RESP 16; TEMP 36; O2SAT 99
== END 2022-06-02 12:15 | disposition home or self-care (01) ==
PROVIDERS: PCP Nurse Practitioner Family; Visit Provider Obstetrics & Gynecology
PROC: 0UBC7ZZ Excision of Cervix, Via Natural or Artificial Opening (ICD-10-PCS; CPT 57522; principal; 2022-06-02 10:00)
DX: N87.1 Moderate cervical dysplasia (principal); N94.3 Premenstrual tension syndrome; F41.8 Other specified anxiety disorders
CPT/HCPCS: 57522; 81025; 88305; 88342; 88307; J0131; J1100; J1885; J2250; J2405

== ENCOUNTER 2022-12-21 16:08 | Outpatient (REF) | payer OTHER, SELFPAY ==
--- NOTE | 2022-12-21 16:00 | PAPFT_PTH ---
PATIENT: Jaquan Owens LOC: [facility] U#:[id number] AGE/SX: 47/F ROOM: RE12/21/[address]: Monse Wray DO : 1975 BED: DIS: 12/21/2022 SPEC #: [id number] RECD: 12/21/22 17:51 STATUS: VIRGILChristal REQ #: [id number] JAMILA: 12/21/22 16:[address]: Monse Wray DEPT: [facility] Cytology RECD BY: Jacqueline Mcdonald ENTERED: 12/21/22 17:51 SP TYPE: PAPFT OTHR DR: Ting Kaplan Tissues: 1 - CX/ENDOCX FOR PAP SMEARS Procedures: PAP THIN PREP/UVM Screening HPV DNA PROBE Comments: [id number] (HPV 16 & 18/45)
== END 2022-12-21 16:09 | disposition home or self-care (01) ==
LOC: LBN 16:08
PROVIDERS: PCP Nurse Practitioner Family; Visit Provider Obstetrics & Gynecology
DX: Z12.4 Encounter for screening for malignant neoplasm of cervix (principal); R87.612 Low grade squamous intraepithelial lesion on cytologic smear of cervix (LGSIL); Z11.51 Encounter for screening for human papillomavirus (HPV); R87.810 Cervical high risk human papillomavirus (HPV) DNA test positive; Z87.410 Personal history of cervical dysplasia
CPT/HCPCS: 88142; 87624

== ENCOUNTER 2023-02-08 10:20 | Outpatient (REF) | payer OTHER, SELFPAY ==
--- NOTE | 2023-02-08 09:20 | ENDO_PTH ---
PATIENT: Jaquan Owens LOC: [facility] U#:[id number] AGE/SX: 47/F ROOM: RE02/08/[address]: Monse Wray DO : 1975 BED: DIS: 02/08/2023 SPEC #: [id number] RECD: 02/08/23 13:05 STATUS: JANET [facility] #: [id number] JAMILA: 02/08/23 09:[address]: Monse Wray DEPT: Surgical Specimen RECD BY: Jacqueline Mcdonald ENTERED: 02/08/23 13:05 SP TYPE: Endo OTHR DR: Ting Kaplan Tissues: 1 - ENDOCERVICAL BX/CURRETTE 2 - CERVICAL BIOPSY Procedures: GROSS AND MICRO LEVEL 4 IMMUNOPEROXIDASE STAIN Comments: [id number]
== END 2023-02-08 10:21 | disposition home or self-care (01) ==
LOC: LBN 10:20
PROVIDERS: PCP Nurse Practitioner Family; Visit Provider Obstetrics & Gynecology
DX: N87.1 Moderate cervical dysplasia (principal); R87.612 Low grade squamous intraepithelial lesion on cytologic smear of cervix (LGSIL); R87.810 Cervical high risk human papillomavirus (HPV) DNA test positive
CPT/HCPCS: 88305; 88361

== ENCOUNTER 2023-06-20 04:18 | Outpatient (CLI) | payer OTHER, SELFPAY ==
[2023-06-20 09:23] LABS: Abs Immature Grans 0.01 10^3/uL (0.0-0.06); Absolute Basophil Count 0.05 10^3/uL (0.0-0.2); Absolute Eosinophil Count 0.13 10^3/uL (0.0-0.7); Absolute Monocyte Count 0.36 10^3/uL (0.1-0.8); Absolute Neutrophil Count 3.48 10^3/uL (1.2-6.7); Basophils % 0.9; Eosinophils % 2.4; HCT 41.8 % (36.0-46.0); HGB 13.7 g/dL (11.2-15.7); Immature Grans % 0.2; Lymphocytes % 24.4; MCH 30.9 pg (27.0-33.0); MCHC 32.8 % (32.0-36.0); MCV 94 fL (80-95); MPV 9.6 fL (8.0-11.0); Monocytes % 6.8; Neutrophils % 65.3; Platelet Count 307 10^3/uL (130-400); RBC 4.43 10^6/uL (3.93-5.22); RDW 11.9 % (11.7-14.6); RDW-SD 41.6 fL; WBC 5.33 10^3/uL (4.4-10.8)
[2023-06-20 10:16] LABS: HCG Qual (Serum) Negative
== END 2023-06-20 04:19 | disposition home or self-care (01) ==
LOC: LBO 04:18
PROVIDERS: PCP Nurse Practitioner Family; Visit Provider Obstetrics & Gynecology
DX: Z01.818 Encounter for other preprocedural examination (principal)
CPT/HCPCS: 36415; 86850; 86900; 86901; 84703; 85025

== ENCOUNTER 2023-06-22 06:10 | Inpatient (IN) | payer OTHER, SELFPAY ==
[2023-06-22 06:33] VITALS: BP 101/70; PULSE 71; RESP 16; TEMP 37; O2SAT 96
[2023-06-22] MEDS: Lactated Ringers 1,000 ML 125 ML IV (06:46)
--- NOTE | 2023-06-22 07:21 | W.PM.PROGNOT ---
Date of Service Date of service: 06/22/23 Time of Service: 07:21 Subjective Subjective Interval history since last seen: Surgery postponed due to lack of hospital bed space. Will re-schedule. Patient and partner aware of situation Objective Last Vital Signs Temp 98.6 F 06/22/23 06:33 Pulse 71 06/22/23 06:33 Resp 16 06/22/23 06:33 BP 101/70 06/22/23 06:33 Pulse Ox 96 06/22/23 06:33 Time Spent with Patient Time Spent with Patient: 25-34 minutes Time was spent: counseling the patient
== END 2023-06-22 15:00 | disposition home or self-care (01) | DRG 951 ==
PROVIDERS: Admitting Provider Obstetrics & Gynecology; PCP Nurse Practitioner Family; Visit Provider Obstetrics & Gynecology
DX: Z53.9 Procedure and treatment not carried out, unspecified reason (principal)

== ENCOUNTER 2023-06-30 06:04 | Inpatient (IN) | payer OTHER, SELFPAY ==
[2023-06-30] VITALS (16 sets, daily range): BP systolic 85–135; BP diastolic 49–82; PULSE 55–87; RESP 11–17; TEMP 35.5–36.8; O2SAT 92–100; BMI 31.8
--- NOTE | 2023-06-30 06:57 | ANES.PREOP_ITS ---
General Info Date of Service Date Performed: 06/30/23 Height: 5 ft 5 in Weight: 86.7 kg Body Mass Index (BMI): 31.8 Surgical Procedure: Operation Date: 06/30/23 07:40 Proposed Procedure Side Surgeon p Hysterectomy Vaginal Laparoscopic Assist, Salpingectomy Monse Wray DO Meds Allergies and Home Medications Allergies Allergy/AdvReac Type Severity Reaction Status Date / Time No Known Allergies Allergy Verified 06/30/23 06:37 Home Medication Medication Instructions Recorded [place]-3S/Dha/Epa/Fish Oil [Fish 1 ea PO DAILY 01/25/18 Oil 1,000 mg Softgel] cholecalciferol (vitamin D3) 25 1,000 unit PO DAILY 01/25/18 mcg (1,000 unit) tablet vitamin B complex (B 1 tab PO DAILY 06/03/20 Complex-Vitamin B12 tablet) citalopram 10 mg tablet (Celexa) 20 mg PO DAILY 04/29/22 levothyroxine 25 mcg capsule 75 mcg PO DAILY 04/29/22 ibuprofen 800 mg tablet 800 mg PO Q8H PRN #20 tabs 06/02/22 Current Visit Medications: Current Medications Generic Name Dose Route Start Last Admin Trade Name Freq PRN Reason Stop Dose Admin Ringer's Solution 1,000 mls @ 125 mls/hr 06/30/23 06:00 IV 06/30/23 23:59 INFUSION CLAIR Cefazolin Sodium/Dextrose 2 gm in 50 mls @ 100 mls/hr 06/30/23 06:00 Ancef Duplex IVPB 06/30/23 23:59 PREOP CLAIR IV Miscellaneous Supplies 1 each 06/30/23 06:00 Iv Access IV 06/30/23 23:59 DIRECTED CLAIR Sodium Chloride 0 ml 06/30/23 06:00 Normal Saline Flush 10 Ml Syr IV 06/30/23 23:59 PRN PRN Sodium Chloride 0 ml 06/30/23 06:00 Normal Saline 10 Ml Vial IJ 06/30/23 23:59 DIRECTED PRN Sterile Water 0 ml 06/30/23 06:00 Water,Injection,Sterile 10 Ml Vial IJ 06/30/23 23:59 DIRECTED PRN PFSH Active Problems Active Problems: Problem Status Onset Code Paresthesias R20.2 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 at elbow of left upper extremity G56.22 MINA II (cervical intraepithelial neoplasia II) N87.1 Low grade squamous intraepithelial lesion (LGSIL) at risk for high grade squamous intraepithelial lesion (HGSIL) on cytologic smear of cervix R87.612 Otalgia, right ear H92.01 Facial pain R51.9 PMS (premenstrual syndrome) N94.3 Periocular dermatitis L30.9 Overweight E66.3 Depression with anxiety F41.8 Family history of breast cancer Z80.3 Chronic rhinosinusitis J31.0, J32.9 Anal fissure K60.2 BREA positive R76.8 RLQ abdominal pain R10.31 Family history of Crohn's disease Z83.79 Diarrhea R19.7 Abdominal pain R10.9 Tension headache G44.209 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 Migraine headache with aura G43.109 Migraine aura without headache G43.109 H/O atypical migraine Z86.69 Hyperlipidemia E78.5 Anxiety and depression F41.9, F32.9 Medical History Medical History Family history of breast cancer in first degree relative Psoriasis Screening for breast cancer Hypothyroidism Hyperlipidemia Abdominal cramps Acute sinusitis Abdominal discomfort Surgical History Surgical History S/P LEEP History of colonoscopy with polypectomy (~07/29/20) Submandibular gland mass Tobacco Smoking/Tobacco Use Status: Never Alcohol Alcohol Intake: current Alcohol intake frequency: a few times a month Alcohol type: hard liquor Substance Use Substance use: Never Substance use type: does not use Prental History History 3 Para 2 Hx # Term Pregnancies 1 Multiple births Hx # Pregnancies 1 Ectopic pregnancies AB induced Hx Number of Living Children 2 AB spontaneous Vital Signs and Lab Results Vital Signs Most Recent Vital Signs in EMR: Most Recent Vital Signs Temp Pulse Resp BP Pulse Ox 36.6 C 76 16 115/72 100 06/30/23 06:25 06/30/23 06:25 06/30/23 06:25 06/30/23 06:25 06/30/23 06:25 Point of Care Results Point of Care Results: POC- Test(urine) Negative 06/30/23 06:53 Lab Results Blood Type / Crossmatch: Patient ABO/Rh A Positive 06/20/23 Antibody Screen NEGATIVE 06/20/23 Complete Blood Count: White Blood Count 5.33 10^3/uL (4.4-10.8) 06/20/23 09:16 Red Blood Count 4.43 10^6/uL (3.93-5.22) 06/20/23 09:16 Hemoglobin 13.7 g/dL (11.2-15.7) 06/20/23 09:16 Hematocrit 41.8 % (36.0-46.0) 06/20/23 09:16 Platelet Count 307 10^3/uL (130-400) 06/20/23 09:16 Complete Metabolic Panel: No Data to Display Liver Function Panel: No Data to Display Coagulation Panel: No Data to Display Cardiac Panel: No Data to Display Arterial Blood Gas: No Data to Display Venous Blood Gas: No Data to Display Pancreas Panel: No Data to Display Thyroid Panel: No Data to Display Infectious Disease: No Data to Display Blood Cultures: No Data to Display Toxicology Panel: No Data to Display Panel: Serum HCG, Qualitative Negative 06/20/23 09:16 Anesthesia Assessment and Plan Anesthesia History Personal History: No History of Anesthesia Complications Family History: No Family History of Anesthesia Complications Exercise Tolerance Exercise Tolerance: Metabolic Equivalents>4 Pertinent Negatives Pertinent Negatives: No Symptoms of GERD, No Major Cardiovascular Symptoms or Complaints and No Major Pulmonary Symptoms or Complaints Cardiac & Pulmonary Exam Cardiac Exam: Normal S1/S2 Heart Sounds Pulmonary Exam: Clear Bilateral Breath Sounds Implantable Cardiac Device Does patient have a Pacemaker or an ICD?: No Airway Exam Known Difficult Airway: No Mallampati Class: 1 Mouth Opening: Normal (> 3cm) Thyromental Distance: Greater than 3 cm Neck Range of Motion: Full ROM Neck Circumference: Normal Teeth Condition: Normal Dentition ASA Classification ASA Score: ASA 2 Emergency Case?: No NPO Status NPO Status: NPO Clears >2 hours, Solids >8 hours Status Status: Negative HCG Anesthesia Plan Resuscitation Status: Full Code Anesthesia Technique: General Anesthesia Airway Planned: Endotracheal Tube Monitors Used: Standard Monitors and SedLine Preoperative Comments:: Patient offered intrathecal analgesia, but declines. Plan for IV pain medication as needed. GA/ETT/TIVA/Sedline/2nd IV
[2023-06-30] MEDS: Lactated Ringers 1,000 ML 125 ML IV ×2 (07:08→10:15)
[2023-06-30] MEDS: ceFAZolin 2 GM/50 ML BAG IVPB (07:53)
[2023-06-30] MEDS: Bupivacaine 0.5% Pres-Free 30 ML VIAL (08:18)
--- NOTE | 2023-06-30 09:14 | UTER_PTH ---
PATIENT: Jaquan Owens LOC: [facility] U#:[id number] AGE/SX: 48/F ROOM: OBS.305 RE06/30/[address]: Monse Wray DO : 1975 BED: A DIS: 07/01/2023 SPEC #: [id number] RECD: 06/30/23 12:09 STATUS: JANET REQ #: [id number] JAMILA: 06/30/23 09:[address]: Monse Wray DEPT: Surgical Specimen RECD BY: Jacqueline Mcdonald ENTERED: 06/30/23 12:12 SP TYPE: UTER OTHR DR: JUSTEN GRAFF Tissues: 1 - UTERUS W OR W/O OVARIES(NOT TUMOR/PROLAPSE) Procedures: GROSS AND MICRO LEVEL 5 Comments: [id number]
--- NOTE | 2023-06-30 10:04 | ROE_ITS ---
Date of service: 06/30/23 Time of Service: 10:04 Operative Note Operative Note DATE OF PROCEDURE: 06/30/23 PRE-OP DIAGNOSIS: Persistent severe cervical dysplasia POST-OP DIAGNOSIS: same PROCEDURE: Laparoscopically assisted vaginal hysterectomy with bilateral salpingectomy, cystoscopy. SURGEON: Monse Wray RHINESTONE SETTER: Aaliyah Chen ANESTHESIA TYPE: Local By Surgeon and General LMA/ETT Refer to Anesthesia Record ESTIMATED BLOOD LOSS: 200 PATHOLOGY: other (Bilateral fallopian tubes, uterus, cervix) COMPLICATIONS: None Patient was transported to: PACU Patient's condition: stable Indications: Persistent severe cervical dysplasia Findings: Normal-appearing tubes, ovaries, uterus. No intra-abdominal or pelvic pathology or trauma noted Procedure Description: Consent was obtained, the patient was taken the operating suite with an IV running. She had received 2 g of Ancef for surgical site infection prophylaxis. She had pneumatic compression stockings for DVT prophylaxis. She was placed in the dorsal supine position and endotracheal intubation performed for the administration of general anesthesia without difficulty. She was then placed in the modified dorsal lithotomy position in [facility] stirps and prepped and draped in the usual sterile fashion. Exam under anesthesia revealed a uterus that was midline and mobile. At this point attention was turned to the vaginal vault where a speculum was inserted and the cervix identified. A single-tooth tenaculum was used to grasp the anterior lip of the cervix and cervical os dilated to the point that a ZUMI uterine manipulator could be placed. Tenaculum and speculum were removed and attention was turned to the abdomen. At this point a small infraumbilical skin incision was made after infiltration of quarter percent Marcaine. The anterior abdominal wall was elevated with sharp towel clips and a Veress needle inserted directly. Pneumoperitoneum created with a maximum pressure of 15 mmHg of CO2 gas without difficulty. At this point a bladeless, Optiview 12 mm port was placed under direct visualization. The abdomen and pelvis was inspected and noted to be free of gross pathology, or trauma. A second and third right and left lower quadrant trocar site were identified and infiltrated with quarter percent Marcaine. Direct visualization was utilized for insertion of a 5 mm trocar in each of these locations. At this point the uterus was elevated and the abdomen and pelvis reinspected. Attention was first turned to the left fallopian tube which was elevated and cautery transected. This was removed through the port. Similar procedure carried out on the right fallopian tube. Again attention was turned to the left round ligament which was cautery transected and ligated allowing access to the left broad ligament. The vesicouterine peritoneum was identified and the bladder flap created. The uterine vessels on the left were cauterized. Similar procedure was carried out on the right round ligament allowing access to the right broad ligament and completion of the bladder flap was made. Uterine vessels were also cauterized on the right. At this point pedicles were inspected and noted to be hemostatic. Procedure was then turned to the vaginal portion After CO2 gas had been released, speculum was inserted into the vaginal vault and Jacqui clamps were used to grasp the anterior and posterior lips of the cervix. In a circumferential fashion with cautery the cervical vaginal interface was incised. The posterior cul-de-sac was entered sharply and a long build weighted speculum placed within. The left and right uterosacral cardinal complex were clamped transected and suture-ligated and then attention was turned to the anterior cul-de-sac. This was entered sharply. Retractor was placed within. The right uterine artery and vein were clamped transected and suture- ligated in a systematic fashion. Similar procedure carried out on the left uterine pedicles. The uterus, and cervix were then delivered through the vagin al incision. All pedicles again were inspected and noted to be hemostatic. The vaginal cuff was closed after reapproximation of the uterosacral cardinal complex to allow good support. Peritoneum was also identified and incorporated into the cuff closure. 0 Vicryl suture was utilized in a running locked fashion to close the cuff. At this point, vaginal portion of the surgery was completed and attention was returned to the abdomen where pneumoperitoneum recreated for inspection of the abdomen and pelvis. The abdomen was irrigated with copious amounts of normal saline. There was 1 area that was not hemostatic with a small area of peritoneal edge bleeding which was clamped with Weck clip x 3. Hemostatic was achieved. Abdomen was again irrigated with copious amounts of normal saline. All pedicles noted to be hemostatic. Pneumoperitoneum released to 5 mm of pressure and again pedicles inspected and noted to be hemostatic. At this point, the procedure this portion of the procedure was terminated. Patient did receive Bludigo for visualization of the ureteric jets at cystoscopy. The fascial incision was closed at this point with 0 Vicryl suture in a simple interrupted fashion. Skin edge was reapproximated with 4-0 undyed Monocryl and Steri-Strips and sterile dressings were placed. Cystoscopy was performed with instillation of normal saline. Both ureteric orifice ease were noted jetting blue-tinged urine. The remainder of the bladder was intact without evidence of trauma, injury, or suture. This completed the hysterectomy, and cystoscopy and Mireles catheter was reinserted. Patient was returned to the dorsal supine position and awoke from anesthesia without difficulty. She was taken to the postanesthesia care unit in stable condition with a Mireles catheter in place draining bluish tinged urine. EBL: 200 mL Urine output: 300 cc Complications: None apparent Findings: Normal-appearing tubes, ovaries, uterus Complications: None apparent Pathology: Bilateral fallopian tubes, uterus, and cervix for examination.
[2023-06-30] MEDS: HYDROmorphone 2 MG/ML SYR IVP ×2 (10:29→10:39)
[2023-06-30] MEDS: Normal Saline 10 ML VIAL IJ (10:30)
[2023-06-30] MEDS: fentaNYL 100 MCG/2 ML VIAL IVP (10:46)
[2023-06-30] MEDS: Acetaminophen 500 MG TAB 1000 MG PO (11:53)
--- NOTE | 2023-06-30 14:13 | W.ANESPOSTOP ---
Postoperative Evaluation Date, Time and Location Date Performed: 06/30/23 Time Performed: 13:55 Patient Location: Obstetrics Vital Signs Most Recent Imported Vital Signs: Most Recent Vital Signs Temp Pulse Resp BP Pulse Ox 36.3 C L 76 16 110/76 93 06/30/23 13:00 06/30/23 13:00 06/30/23 13:00 06/30/23 13:00 06/30/23 13:00 Pain Score Most Recent Pain Score: Most Recent Pain Score Pain Level 5 06/30/23 13:00 Assessment Mental Status: Awake (Alert & Oriented to Patient Baseline) Airway and Respiratory Function: Patent airway with normal (patient baseline) respiratory exam Cardiovascular Function: Hemodynamically Stable Hydration Status: Adequately Hydrated Nausea & Vomiting: No Nausea or Vomiting Pain: Pain is tolerable per patient Peripheral Nerve Block: Patient did not receive a nerve block
--- NOTE | 2023-06-30 14:14 | PGE_ITS ---
Date of Service Date of service: 06/30/23 Time of Service: 14:14 Assessment and Plan Assessment and plan (1) Status post laparoscopic assisted vaginal hysterectomy (LAVH): Status: Acute Assessment and plan: Postop day 0 status post laparoscopically assisted vaginal hysterectomy with bilateral salpingectomy. 200 cc blood loss. CBC pending for the morning. Mireles catheter out tonight. Transition from parenteral to oral pain medication. Ambulate. Anticipate discharge home 07/01/2023. Subjective Subjective Interval history since last seen: Patient seen and examined this afternoon, surgery explained. She is doing well postoperative day #0. Vital signs are stable. Urine output is adequate. Pain is well-controlled. We did discuss liberalizing her activity, removing her Mireles catheter this evening, and transitioning fully to oral pain medication and oral intake. All of her questions were answered today. She will have a morning CBC. Plan of care discussed with covering physician, Dr. Chen Exam Narrative Exam Narrative: Alert, oriented, no acute distress HENMT Head: normal to inspection Resp Effort & Inspection: normal respiratory effort and no cough Cardio Rate: regular rate Rhythm: regular rhythm GI Inspection: normal to inspection Palpation: soft Psych Appearance: grossly normal Mental Status: mental status grossly normal Objective Last Vital Signs Temp 97.3 F L 06/30/23 13:00 Pulse 76 06/30/23 13:00 Resp 16 06/30/23 13:00 BP 110/76 06/30/23 13:00 Pulse Ox 93 06/30/23 13:00 Laboratory Results - last 24 hr 06/30/23 06:43 Patient ABO/Rh A Positive Antibody Screen NEGATIVE Time Spent with Patient Time Spent with Patient: <25 minutes Time was spent: preparing to see the patient(eg.review tests), obtaining and/or reviewing separately otained hiistory, referring, communicating with other [facility] care provider, counseling the patient and care coordination
[2023-06-30] MEDS: oxyCODONE 5 mg/Acetaminophen 325 mg TAB PO ×2 (14:20→18:08)
[2023-06-30] MEDS: Normal Saline Flush 10 ML SYR IV ×2 (16:03→22:15)
[2023-06-30] MEDS: Ketorolac 30 MG/ML VIAL 15 MG IVP ×2 (16:04→22:15)
[2023-06-30] MEDS: Docusate Sodium 100 MG CAP PO (20:03)
[2023-07-01 04:08] VITALS: BP 97/64; PULSE 80; RESP 16; TEMP 36.6; O2SAT 99
[2023-07-01] MEDS: Ketorolac 30 MG/ML VIAL 15 MG IVP (04:09)
[2023-07-01] MEDS: Normal Saline Flush 10 ML SYR IV (04:09)
[2023-07-01] MEDS: Levothyroxine 75 MCG TAB PO (06:03)
[2023-07-01 06:36] LABS: HCT 35.9 % (36.0-46.0); HGB 12.2 g/dL (11.2-15.7); MCH 31.5 pg (27.0-33.0); MCV 93 fL (80-95); MPV 9.9 fL (8.0-11.0); Platelet Count 237 10^3/uL (130-400); RBC 3.87 10^6/uL (3.93-5.22); RDW 12.1 % (11.7-14.6); RDW-SD 41.1 fL; WBC 10.69 10^3/uL (4.4-10.8)
[2023-07-01] MEDS: Docusate Sodium 100 MG CAP PO (07:57)
[2023-07-01 08:00] VITALS: BP 108/73; PULSE 79; RESP 12; TEMP 37; O2SAT 98
[2023-07-01] MEDS: Acetaminophen 500 MG TAB 1000 MG PO (08:06)
[2023-07-01] MEDS: Citalopram 20 MG TAB PO (08:28)
--- NOTE | 2023-07-01 08:47 | W.PM.DS.N ---
Date of service: 07/01/23 Time of Service: 08:48 DS: Diagnosis Discharge Diagnosis (1) Status post laparoscopic assisted vaginal hysterectomy (LAVH): Status: Acute Discharge Plan Disposition Patient Disposition: Home Condition: Good Discharge Details Reason For Visit: S/P LAVH Admit Date/Time: 06/30/23 06:04 Admit Provider: Monse Wray Attending Provider: Monse Wray Primary Care Provider: Pilar Gonzalez Hospital Course Hospital Course: Patient underwent a laparoscopically assisted vaginal hysterectomy with bilateral salpingectomy on 06/30/2023. At the time of surgery she had a 200 cc blood loss and an uncomplicated surgical procedure. Cystoscopy was benign with normal ureteric patency and no trauma to her bladder identified. In the postoperative course she was transition from parenteral pain medication to oral pain medication and to a regular diet. Home Meds and New Rx's Prescriptions: New ibuprofen 800 mg tablet 800 mg PO Q8H Qty: 60 1RF docusate sodium [Colace] 100 mg capsule 100 mg PO BID Qty: 30 1RF oxycodone-acetaminophen [Percocet] 5-325 mg tablet 1 tab PO Q8H PRNQty: 10 0RF No Action cholecalciferol (vitamin D3) 1,000 UNIT tablet 1,000 unit PO DAILY [place]-3S/Dha/Epa/Fish Oil [Fish Oil 1,000 mg Softgel] 1 EACH capsule 1 ea PO DAILY vitamin B complex [B Complex-Vitamin B12] Tablet 1 tab PO DAILY citalopram [Celexa] 10 mg tablet 20 mg PO DAILY levothyroxine 25 mcg capsule 75 mcg PO DAILY ibuprofen 800 mg tablet 800 mg PO Q8H PRNQty: 20 0RF Discharge Instructions Additional Instructions: You may shower with the steristips (white tape) on. You can change the bandaids if you wish. Hold off on tub baths until you see Dr. Wray in 2 weeks. Call [phone] at any time and ask to speak to the doctor quarry supervisor dimension stone if you have questions or concerns. Use Ibuprofen 600mg dameon 6 hours as needed for pain.Take one tablet of Percocet 5/325mg every 6 hours for pain not relieved by the Ibuprofen Stand Alone Forms: DSU Post Website Developer SurgeryW/Incision Activity:: Pelvic rest, no heavy lif Equipment/Supplies:: No Equipment Needed Diet:: As Tolerated DS: Summary Time Spent with Patient providing and/or coordinating discharge services: Less than 30 minutes Status at Discharge Functional status at discharge: independent ambulation Overall status at discharge: patient is progressing back to baseline Mental Status: mental status grossly normal Speech and Movement: speech and movement normal Mood: congruent mood Affect: normal affect Quality:SDOH Health Related Social Needs: No Data to Display Exam Narrative Exam Narrative: POD 1 s/p LAVH with bilateral salpingectomy and bladder cystoscopy. Pain well controlled with NSAIDs and one dose of Percocet overnight. Mireles out this am and pt able to void spontaneously. She will be discharged to home today and follow up with Dr. Wray for post op check in 2 and 6 weeks postop. Const General: no acute distress Nutritional Appearance: well nourished Orientation: alert, awake and oriented x3 Resp Effort & Inspection: normal respiratory effort Auscultation: clear to auscultation bilaterally Cardio Rate: regular rate Rhythm: regular rhythm GI Inspection: no edema and incision (covered with steristrips and bandaids. ) Palpation: soft and nontender Rectal Exam - female: deferred General: deferred Skin General skin exam: no rashes or lesions noted Neuro Cognition: normal cognition Speech: speech normal Gait: normal gait Extrem General: normal to inspection Psych Appearance: grossly normal Mental Status: mental status grossly normal Speech and Movement: speech and movement normal Mood: congruent mood Affect: normal affect DS: Data Vitals/I&O Vitals and I&O: Vital Signs Temperature 98.6 F 07/01/23 08:00 Temperature Source Tympanic 07/01/23 08:00 Pulse 79 07/01/23 08:00 Pulse Rhythm Regular 07/01/23 08:00 Respiratory Rate 12 07/01/23 08:00 Respiratory Effort Normal 07/01/23 08:00 Respiratory Depth Normal 07/01/23 08:00 Respiratory Pattern Normal 07/01/23 08:00 Blood Pressure 108/73 07/01/23 08:00 Pulse Oximetry 98 07/01/23 08:00 Respiratory End-tidal CO2 42 06/30/23 10:55 Oxygen Delivery Method Room Air 07/01/23 08:00 Oxygen Flow Rate 0 07/01/23 08:00 Pain Level 3 07/01/23 08:06 Comment SA O2 up to 96% after unsing IS 06/30/23 13:00 Intake & Output 06/30/23 06/30/23 07/01/23 11:59 23:59 11:59 Intake Total 1500 / 2245 745 / 2245 600 / 600 Output Total 500 / 1650 1150 / 1650 300 / 300 Balance 1000 / 595 -405 / 595 300 / 300 Weight 191 lb Intake: IV 1500 / 1520 20 / 1520 Oral 725 / 725 600 / 600 Output: Urine 300 / 1450 1150 / 1450 300 / 300 Estimated Blood Loss 200 / 200 Other: Urine Color Indigo Yellow Green Urine Appearance Clear Clear Clear Urine Odor None None Emesis Description None Voiding Methods Toilet Toilet Data Completed and Pending Labs on day of discharge: Labs from last 24 hours 07/01/23 06:23 WBC 10.69 RBC 3.87 L Hgb 12.2 Hct 35.9 L MCV 93 MCH 31.5 MCHC 34.0 RDW 12.1 Plt Count 237 MPV 9.9 PFSH All Active Problems (Updated 07/01/23 @ 00:03 by LATANYA TANNER) Status post laparoscopic assisted vaginal hysterectomy (LAVH) (Acute) LAVH, bilateral salpingectomy 06/30/2023 Paresthesias (Acute) Ulnar neuropathy at elbow of right upper extremity (Acute) Ulnar neuropathy at elbow of left upper extremity (Acute) MINA II (cervical intraepithelial neoplasia II) (Acute) LEEP 05/2022. Needs pap q 6 months x 2 years. Colpo for any abnormal Pap 02/02?L NAVID, positive high risk HPV Colpo 02/02?ECC, biopsy at 11:00-MINA-2. Recommend conization. Low grade squamous intraepithelial lesion (LGSIL) at risk for high grade squamous intraepithelial lesion (HGSIL) on cytologic smear of cervix (Acute) LSIL on Pap smear 05/04. Previous positive high risk HPV. Colposcopic examination performed 04/28/2022 with biopsy at 2:00, and endocervical curettage. 12/2022-L NAVID. 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/18; incidental finding; Migraine headache with aura (Chronic) Migraine aura without headache (Chronic) H/O atypical migraine (Chronic) Hyperlipidemia (Chronic) Anxiety and depression (Chronic) Medical History Family history of breast cancer in first degree relative Psoriasis Screening for breast cancer Hypothyroidism Hyperlipidemia Abdominal cramps Acute sinusitis Abdominal discomfort Surgical History S/P LEEP History of colonoscopy with polypectomy (~07/29/20) Submandibular gland mass Family History Mother Multiple sclerosis Breast cancer Thyroid disease Anxiety Family history of multiple sclerosis Father Carsickness Heart disease Hypertension High cholesterol Maternal Grandmother Headache Sister Crohns disease Anxiety Social History Smoking/Tobacco Use Status: Never Smoking risk assessment performed?: Yes Alcohol Intake: current Alcohol Intake frequency: a few times a month Alcohol type: hard liquor Drug use: Never Substance use type: does not use Household members: spouse Housing: house Number of Children: 2 current occupation: [employer] Current gender identity: female Do you feel safe at home: Yes Additional Social history: unable to assess privately History History 3 Para 2 Hx # Term Pregnancies 1 Multiple births Hx # Pregnancies 1 Ectopic pregnancies AB induced Hx Number of Living Children 2 AB spontaneous Time Spent with Patient Time Spent with Patient: <45 minutes Time was spent: preparing to see the patient(eg.review tests)
== END 2023-07-01 09:50 | disposition home or self-care (01) | DRG 743 ==
LOC: PDS 10:00 → OBS 11:40
PROVIDERS: Admitting Provider Obstetrics & Gynecology; PCP Nurse Practitioner Family; Visit Provider Obstetrics & Gynecology
PROC: 0UT9FZZ Resection of Uterus, Via Natural or Artificial Opening With Percutaneous Endoscopic Assistance (ICD-10-PCS; CPT 58552; principal; 2023-06-30 07:30)
DX: N87.1 Moderate cervical dysplasia (principal); E78.5 Hyperlipidemia, unspecified; F41.8 Other specified anxiety disorders; G56.23 Lesion of ulnar nerve, bilateral upper limbs; E66.3 Overweight; Z68.31 Body mass index [BMI] 31.0-31.9, adult; E03.9 Hypothyroidism, unspecified; G43.909 Migraine, unspecified, not intractable, without status migrainosus
CPT/HCPCS: 58552; 36415; 81025; 85027; 86850; 86900; 86901; 88307; J0131; J0665; J0690; J1100; J1170; J1885; J2250; J2405; J2704; J3010

== ENCOUNTER 2024-08-17 17:02 | Outpatient (REF) | payer OTHER, SELFPAY ==
[2024-08-17 21:39] LABS: Abs Immature Grans 0.02 10^3/uL (0.0-0.06); Absolute Basophil Count 0.04 10^3/uL (0.0-0.2); Absolute Eosinophil Count 0.14 10^3/uL (0.0-0.7); Absolute Lymphocyte Count 1.65 10^3/uL (1.2-3.4); Absolute Monocyte Count 0.46 10^3/uL (0.1-0.8); Absolute Neutrophil Count 4.19 10^3/uL (1.2-6.7); Basophils % 0.6 %; Eosinophils % 2.2 %; HCT 42.6 % (36.0-46.0); HGB 13.7 g/dL (11.2-15.7); Immature Grans % 0.3 %; Lymphocytes % 25.4 %; MCH 31.4 pg (27.0-33.0); MCHC 32.2 % (32.0-36.0); MCV 98 fL (80-95); Monocytes % 7.1 %; Neutrophils % 64.4 %; Platelet Count 279 10^3/uL (130-400); RBC 4.37 10^6/uL (3.93-5.22); RDW 11.9 % (11.7-14.6); RDW-SD 42.9 fL
[2024-08-17 22:10] LABS: ALT 23 U/L (14-59); AST 12 U/L (15-37); Albumin 4.2 g/dL (3.4-5.0); Alkaline Phosphatase 75 U/L (46-116); Anion Gap 7.4 mmol/L (3-11); BUN 17 mg/dL (7-18); Bilirubin, Total 0.3 mg/dL (0.2-1.0); CO2 27.6 mmol/L (21.0-32.0); CREATININE 0.8 mg/dL (0.55-1.02); Calcium 9.1 mg/dL (8.5-10.1); Calculated LDL 155 mg/dL (<100); Chloride 106 mmol/L (98-107); Cholesterol 241 mg/dL (<200); Estimated GFR 89.15 (mL/min/1.73m2); Glucose 95 mg/dL (74-106); HDL Cholesterol 65 mg/dL (>or=50); Potassium 4.3 mmol/L (3.5-5.1); Sodium 141 mmol/L (136-145); TSH 3.06 uIU/mL (0.36-3.74); Total Protein 7.3 g/dL (6.4-8.2); Triglyceride 105 mg/dL (<150)
[2024-08-18 22:15] LABS: T4, Free 1.1 ng/dL (0.8-2.2)
== END 2024-08-17 17:03 | disposition home or self-care (01) ==
LOC: NCHCN 17:02
PROVIDERS: Visit Provider Nurse Practitioner Family
DX: E78.5 Hyperlipidemia, unspecified (principal); E03.9 Hypothyroidism, unspecified; F41.9 Anxiety disorder, unspecified
CPT/HCPCS: 80053; 80061; 84439; 84443; 85025